=== PATIENT | male | born 1945 | race Caucasian/White ===

== ENCOUNTER 2025-01-07 16:18 | Emergency (ER) | payer MEDICARE, OTHER, SELFPAY ==
[2025-01-07] VITALS (10 sets, daily range): BP systolic 122–179; BP diastolic 73–89; PULSE 75–80; RESP 12–21; TEMP 36.6; O2SAT 94–99; BMI 29.2
--- NOTE | 2025-01-07 16:28 | DI.RAD.S_ITS ---
PROCEDURE: XR CHEST 1V INDICATIONS: Chest Pain TECHNIQUE: One view of the chest was acquired. COMPARISON: [facility], CR, XR CHEST 1 VIEW, 09/18/2023, 17:47. FINDINGS: Surgical changes and devices: None. Lungs and pleura: Lungs are clear. No pleural effusions or pneumothorax. Mediastinum: Mediastinal contours appear normal. Heart size is normal. Bones and chest wall: No suspicious bony lesions. Age-appropriate bony degenerative changes are seen. Overlying soft tissues appear unremarkable. IMPRESSION: Unremarkable imaging examination for age. Dictated by: Jose Smart M.D. on 01/07/2025 at 16:27 Approved by: Jose Smart M.D. on 01/07/2025 at 16:28
--- NOTE | 2025-01-07 16:29 | EKG_ITS ---
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
--- NOTE | 2025-01-07 16:45 | ED.DIZZY ---
HPI - Dizziness <Gordo Dorantes, DO - Last Filed: 01/07/25 22:34> General Chief Complaint: Dizziness Stated Complaint: chest problems? Time Seen by Provider: 01/07/25 16:23 Source: patient Mode of arrival: Ambulatory History of Present Illness HPI Narrative: 79-year-old gentleman history of high blood pressure, diabetes, cholesterol, presents with weakness, no energy, dizziness described as lightheadedness for the past few days progressively getting worse along with a a productive cough for which patient has not been seen or evaluated up to this point for the past few days. No recent sick contacts. Patient denies fever, chills, body aches, sore throat, chest pain, abdominal pain, nausea, vomiting, diarrhea, leg pain, or leg swelling. Other than what is stated 14 point review of system is negative. Related Data Allergies Allergy/AdvReac Type Severity Reaction Status Date / Time Penicillins Allergy Intermediate Verified 01/07/25 16:22 Review of Systems <Gordo Dorantes, DO - Last Filed: 01/07/25 22:34> Review of Systems ROS Unobtainable: All systems reviewed & are unremarkable except as noted in HPI and below Patient History <Gordo Dorantes, DO - Last Filed: 01/07/25 22:34> Social History Smoking Status: Never smoker Smoking Status: Never smoker Exam <Gordo Dorantes DO - Last Filed: 01/07/25 22:34> Narrative Exam Narrative: GENERAL: [79] year old patient appears stated age. Well-developed patient, in mild distress. HEAD: Atraumatic. Normocephalic. EYES: Pupils equal round and reactive. Extraocular motions intact. No scleral icterus. No injection or drainage. ENT: Nose without bleeding, purulent drainage. Throat without erythema, tonsillar hypertrophy or exudate. Airway patent. NECK: Trachea midline. Non tender CARDIOVASCULAR: Regular rate and rhythm without murmurs, gallops, or rubs. RESPIRATORY: Clear to auscultation. Breath sounds equal bilaterally. No wheezes, rales, or rhonchi. GASTROINTESTINAL: Abdomen soft, non-tender, nondistended. EXTREMITIES: No edema or joint tenderness. BACK: Nontender without deformity or crepitance. No flank tenderness. NEURO: AOx3. GCS 15 nonfocal neuro exam SKIN: No rash or erythema of visible areas Initial Vital Signs Initial Vital Signs: Vital Signs Temperature 98 F 01/07/25 16:22 Pulse Rate 78 01/07/25 16:22 Respiratory Rate 16 01/07/25 16:22 Pulse Oximetry 96 01/07/25 16:22 Oxygen Delivery Method Room Air 01/07/25 16:22 <Fawad Mendoza, DO - Last Filed: 01/07/25 19:38> Initial Vital Signs Initial Vital Signs: Vital Signs Temperature 98 F 01/07/25 16:22 Pulse Rate 78 01/07/25 16:22 Respiratory Rate 16 01/07/25 16:22 Pulse Oximetry 96 01/07/25 16:22 Oxygen Delivery Method Room Air 01/07/25 16:22 Course <Gordo Dorantes, DO - Last Filed: 01/07/25 22:34> Orders Ordered: ED Orders 01/07/25 16:28 XR chest 1V Stat EKG-12 Lead Stat 01/07/25 16:48 CT angio head and neck Stat CT head/brain wo con Stat 01/07/25 16:55 Blood Culture Stat Complete Blood Count AUTO DIFF Stat Comprehensive Metabolic Panel Stat Covid-19 + FLU A/B + RSV - PCR Stat Lactate (Lactic Acid) Stat Lipase Stat Lipase Stat Magnesium Stat NT-proBNP (BNP-Adult 18+) Stat PTT Partial Thromboplastin Ish Stat Procalcitonin Stat Prothrombin Time INR Stat Troponin & CK Cardiac Panel Stat 01/07/25 17:04 EKG-12 Lead Stat RT Consult Eval and Treat NOW 01/07/25 18:37 Urine Microscopic Stat 01/07/25 19:00 Trop I [Troponin I] Stat EKG-12 Lead Stat Discontinued Medications Aspirin (Aspirin 81 Mg Chew Tab) 324 mg PO NOW ONE Stop: 01/07/25 16:29 Last Admin: 01/07/25 17:30 Dose: Not Given Documented By: VINICIUS Sodium Chloride (Normal Saline 0.9%) 1,000 mls @ 1,000 mls/hr IV BOLUS ONE Stop: 01/07/25 18:03 Last Infusion: 01/07/25 18:54 Dose: Infused Documented By: Admin: 01/07/25 17:15 Dose: 1,000 mls/hr Documented By: VINICIUS Ondansetron HCl (Ondansetron 4 Mg/2 Ml Inj) 4 mg IV NOW PRN PRN Reason: Nausea And Vomiting Ondansetron HCl (Ondansetron 4 Mg Odt) 4 mg PO NOW PRN PRN Reason: Nausea And Vomiting Vital Signs Vital signs: Vital Signs - 8 hr 01/07/25 16:22 01/07/25 16:37 01/07/25 16:37 Temperature 98 F Pulse Rate 78 Respiratory Rate 16 Blood Pressure 122/73 Pulse Oximetry 96 99 Oxygen Delivery Method Room Air 01/07/25 17:00 01/07/25 17:00 01/07/25 17:30 Temperature Pulse Rate 76 75 Respiratory Rate 16 21 Blood Pressure 133/78 Pulse Oximetry 96 94 Oxygen Delivery Method 01/07/25 17:32 01/07/25 17:32 01/07/25 18:00 Temperature Pulse Rate 75 77 Respiratory Rate 13 17 Blood Pressure 124/73 Pulse Oximetry 94 94 Oxygen Delivery Method 01/07/25 18:30 01/07/25 19:00 01/07/25 19:01 Temperature Pulse Rate 80 77 78 Respiratory Rate 18 13 12 Blood Pressure Pulse Oximetry 95 94 94 Oxygen Delivery Method 01/07/25 19:01 01/07/25 19:30 01/07/25 19:30 Temperature Pulse Rate 79 Respiratory Rate 13 Blood Pressure 150/81 H 179/89 H Pulse Oximetry 95 Oxygen Delivery Method <Fawad Mendoza, DO - Last Filed: 01/07/25 19:38> Orders Ordered: ED Orders 01/07/25 16:28 XR chest 1V Stat EKG-12 Lead Stat 01/07/25 16:48 CT angio head and neck Stat CT head/brain wo con Stat 01/07/25 16:55 Blood Culture Stat Complete Blood Count AUTO DIFF Stat Comprehensive Metabolic Panel Stat Covid-19 + FLU A/B + RSV - PCR Stat Lactate (Lactic Acid) Stat Lipase Stat Lipase Stat Magnesium Stat NT-proBNP (BNP-Adult 18+) Stat PTT Partial Thromboplastin Ish Stat Procalcitonin Stat Prothrombin Time INR Stat Troponin & CK Cardiac Panel Stat 01/07/25 17:04 EKG-12 Lead Stat RT Consult Eval and Treat NOW 01/07/25 18:37 Urine Microscopic Stat 01/07/25 19:00 Trop I [Troponin I] Stat EKG-12 Lead Stat Discontinued Medications Aspirin (Aspirin 81 Mg Chew Tab) 324 mg PO NOW ONE Stop: 01/07/25 16:29 Last Admin: 01/07/25 17:30 Dose: Not Given Documented By: VINICIUS Sodium Chloride (Normal Saline 0.9%) 1,000 mls @ 1,000 mls/hr IV BOLUS ONE Stop: 01/07/25 18:03 Last Infusion: 01/07/25 18:54 Dose: Infused Documented By: Admin: 01/07/25 17:15 Dose: 1,000 mls/hr Documented By: VINICIUS Ondansetron HCl (Ondansetron 4 Mg/2 Ml Inj) 4 mg IV NOW PRN PRN Reason: Nausea And Vomiting Ondansetron HCl (Ondansetron 4 Mg Odt) 4 mg PO NOW PRN PRN Reason: Nausea And Vomiting Vital Signs Vital signs: Vital Signs - 8 hr 01/07/25 16:22 01/07/25 16:37 01/07/25 16:37 Temperature 98 F Pulse Rate 78 Respiratory Rate 16 Blood Pressure 122/73 Pulse Oximetry 96 99 Oxygen Delivery Method Room Air 01/07/25 17:00 01/07/25 17:00 01/07/25 17:30 Temperature Pulse Rate 76 75 Respiratory Rate 16 21 Blood Pressure 133/78 Pulse Oximetry 96 94 Oxygen Delivery Method 01/07/25 17:32 01/07/25 17:32 01/07/25 18:00 Temperature Pulse Rate 75 77 Respiratory Rate 13 17 Blood Pressure 124/73 Pulse Oximetry 94 94 Oxygen Delivery Method 01/07/25 18:30 01/07/25 19:00 01/07/25 19:01 Temperature Pulse Rate 80 77 78 Respiratory Rate 18 13 12 Blood Pressure Pulse Oximetry 95 94 94 Oxygen Delivery Method 01/07/25 19:01 01/07/25 19:30 01/07/25 19:30 Temperature Pulse Rate 79 Respiratory Rate 13 Blood Pressure 150/81 H 179/89 H Pulse Oximetry 95 Oxygen Delivery Method MDM - Dizziness <Gordo Dorantes DO - Last Filed: 01/07/25 22:34> Lab Data 01/07/25 16:55 01/07/25 16:55 Labs: Lab Results 01/07/25 01/07/25 01/07/25 Range/Units 16:55 16:55 18:37 WBC 5.4 (4.5-11.0) X10^3/uL RBC 4.49 L (4.5-5.9) X10^6/uL Hgb 14.4 (13.5-17.5) g/dL Hct 40.7 L (41-53) % MCV 90.7 (80-100) fL MCH 32.2 (26-34) PG MCHC 35.4 (30-36) % RDW 14.1 (11.6-14.8) % Plt Count 102 L (150-400) X10^3/uL Neut % (Auto) 66.7 (50-75) % Lymph % (Auto) 13.7 L (25-40) % [place] % (Auto) 16.4 H (3-14) % Eos % (Auto) 2.5 (2-4) % Baso % (Auto) 0.7 (0-2) % Neut # (Auto) 3600 (5401-1717) /uL Lymph # (Auto) 700 L (4229-3310) /uL [place] # (Auto) 900 (0-900) /uL Eos # (Auto) 100 (0-450) /uL Baso # (Auto) 0 (0-100) /uL PT 12.3 (9.4-12.5) SECONDS INR 1.1 (0.9-1.3) APTT 29 (25.1-36.5) SECONDS Sodium 137 (137-145) mmol/L Potassium 4.1 (3.4-5.1) mmol/L Chloride 102 (98-107) mmol/L Carbon Dioxide 24 (22-32) mmol/L BUN 18 (9-20) mg/dL Creatinine 1.15 (0.66-1.25) mg/dL Estimated GFR > 60 (>60) mL/min BUN/Creatinine Ratio 15.7 (6-22) Glucose 96 (70-99) mg/dL Lactate 1.4 (0.7-2.1) mmol/L Calcium 8.9 (8.4-10.2) mg/dL Magnesium 2.0 (1.6-2.3) mg/dL Total Bilirubin 1.3 (0.2-1.3) mg/dL AST 26 (17-59) IU/L ALT 18 (<50) IU/L Alkaline Phosphatase 61 (38-126) U/L Total Creatine Kinase 103 (55-170) U/L Troponin I < 0.012 (0.01-0.034) ng/mL NT-Pro-B Natriuret Pep 1130 H (<450) pg/mL Total Protein 7.6 (6.3-8.2) g/dL Albumin 4.6 (3.5-5.0) g/dL Globulin 3.0 (1.7-4.1) g/dL Albumin/Globulin Ratio 1.5 (1.0-2.8) Lipase 64 63 (23-300) U/L Procalcitonin 0.128 (<0.5) ng/mL Urine RBC None seen (0-5/HPF) Urine WBC 0-1/hpf (0-5/HPF) Ur Squamous Epith Cells None seen (0-5/HPF) Urine Bacteria None seen (None) Vol Urine Centrifuged 10ml (spun) SARS-CoV-2 (PCR) Positive H (Negative) Influenza A (RT-PCR) Flu a negative (NEGATIVE) Influenza B (RT-PCR) Flu b negative (NEGATIVE) RSV (PCR) Negative (Negative) 01/07/25 Range/Units 19:00 WBC (4.5-11.0) X10^3/uL RBC (4.5-5.9) X10^6/uL Hgb (13.5-17.5) g/dL Hct (41-53) % MCV (80-100) fL MCH (26-34) PG MCHC (30-36) % RDW (11.6-14.8) % Plt Count (150-400) X10^3/uL Neut % (Auto) (50-75) % Lymph % (Auto) (25-40) % [place] % (Auto) (3-14) % Eos % (Auto) (2-4) % Baso % (Auto) (0-2) % Neut # (Auto) (4984-5269) /uL Lymph # (Auto) (1076-1100) /uL [place] # (Auto) (0-900) /uL Eos # (Auto) (0-450) /uL Baso # (Auto) (0-100) /uL PT (9.4-12.5) SECONDS INR (0.9-1.3) APTT (25.1-36.5) SECONDS Sodium (137-145) mmol/L Potassium (3.4-5.1) mmol/L Chloride (98-107) mmol/L Carbon Dioxide (22-32) mmol/L BUN (9-20) mg/dL Creatinine (0.66-1.25) mg/dL Estimated GFR (>60) mL/min BUN/Creatinine Ratio (6-22) Glucose (70-99) mg/dL Lactate (0.7-2.1) mmol/L Calcium (8.4-10.2) mg/dL Magnesium (1.6-2.3) mg/dL Total Bilirubin (0.2-1.3) mg/dL AST (17-59) IU/L ALT (<50) IU/L Alkaline Phosphatase (38-126) U/L Total Creatine Kinase (55-170) U/L Troponin I < 0.012 (0.01-0.034) ng/mL NT-Pro-B Natriuret Pep (<450) pg/mL Total Protein (6.3-8.2) g/dL Albumin (3.5-5.0) g/dL Globulin (1.7-4.1) g/dL Albumin/Globulin Ratio (1.0-2.8) Lipase (23-300) U/L Procalcitonin (<0.5) ng/mL Urine RBC (0-5/HPF) Urine WBC (0-5/HPF) Ur Squamous Epith Cells (0-5/HPF) Urine Bacteria (None) Vol Urine Centrifuged SARS-CoV-2 (PCR) (Negative) Influenza A (RT-PCR) (NEGATIVE) Influenza B (RT-PCR) (NEGATIVE) RSV (PCR) (Negative) Urine Dip Bedside Urine Glucose 1000 mg/dl Bedside Urine Bilirubin - Negative Bedside Urine Ketone + 15 Urine Specific [place] 1.010 Bedside Urine Occult Blood - Negative Bedside Urine pH 6.0 Bedside Urine Protein +/- 15 Bedside Urine Urobilinogen - Negative Bedside Urine Nitrite - Negative Bedside Urine Leukocytes - Negative Esterase Imaging Data Chest x-ray: Radiologist's Impression: [address] [address] XRay Report Signed Patient: Janes oMrel MR#: [id number] : 1945 Acct:[id number] Age/Sex: 79 / M Date of Service: 01/07/25 Loc: ED Accession Number: [id number] Procedure: XR chest 1V Ordering Provider: Gordo Dorantes D.O. PROCEDURE: XR CHEST 1V INDICATIONS: Chest Pain TECHNIQUE: One view of the chest was acquired. COMPARISON: [facility], CR, XR CHEST 1 VIEW, 09/18/2023, 17:47. FINDINGS: Surgical changes and devices: None. Lungs and pleura: Lungs are clear. No pleural effusions or pneumothorax. Mediastinum: Mediastinal contours appear normal. Heart size is normal. Bones and chest wall: No suspicious bony lesions. Age-appropriate bony degenerative changes are seen. Overlying soft tissues appear unremarkable. IMPRESSION: Unremarkable imaging examination for age. ECG Data Interpretation: NSR HR 77 NE 164 QRS [address]-t wave change No previous EKG to compare <Fawad Reji, DO - Last Filed: 01/07/25 19:38> Lab Data Labs: Lab Results 01/07/25 01/07/25 01/07/25 Range/Units 16:55 16:55 18:37 WBC 5.4 (4.5-11.0) X10^3/uL RBC 4.49 L (4.5-5.9) X10^6/uL Hgb 14.4 (13.5-17.5) g/dL Hct 40.7 L (41-53) % MCV 90.7 (80-100) fL MCH 32.2 (26-34) PG MCHC 35.4 (30-36) % RDW 14.1 (11.6-14.8) % Plt Count 102 L (150-400) X10^3/uL Neut % (Auto) 66.7 (50-75) % Lymph % (Auto) 13.7 L (25-40) % [place] % (Auto) 16.4 H (3-14) % Eos % (Auto) 2.5 (2-4) % Baso % (Auto) 0.7 (0-2) % Neut # (Auto) 3600 (0753-3681) /uL Lymph # (Auto) 700 L (9193-9966) /uL [place] # (Auto) 900 (0-900) /uL Eos # (Auto) 100 (0-450) /uL Baso # (Auto) 0 (0-100) /uL PT 12.3 (9.4-12.5) SECONDS INR 1.1 (0.9-1.3) APTT 29 (25.1-36.5) SECONDS Sodium 137 (137-145) mmol/L Potassium 4.1 (3.4-5.1) mmol/L Chloride 102 (98-107) mmol/L Carbon Dioxide 24 (22-32) mmol/L BUN 18 (9-20) mg/dL Creatinine 1.15 (0.66-1.25) mg/dL Estimated GFR > 60 (>60) mL/min BUN/Creatinine Ratio 15.7 (6-22) Glucose 96 (70-99) mg/dL Lactate 1.4 (0.7-2.1) mmol/L Calcium 8.9 (8.4-10.2) mg/dL Magnesium 2.0 (1.6-2.3) mg/dL Total Bilirubin 1.3 (0.2-1.3) mg/dL AST 26 (17-59) IU/L ALT 18 (<50) IU/L Alkaline Phosphatase 61 (38-126) U/L Total Creatine Kinase 103 (55-170) U/L Troponin I < 0.012 (0.01-0.034) ng/mL NT-Pro-B Natriuret Pep 1130 H (<450) pg/mL Total Protein 7.6 (6.3-8.2) g/dL Albumin 4.6 (3.5-5.0) g/dL Globulin 3.0 (1.7-4.1) g/dL Albumin/Globulin Ratio 1.5 (1.0-2.8) Lipase 64 63 (23-300) U/L Procalcitonin 0.128 (<0.5) ng/mL Urine RBC None seen (0-5/HPF) Urine WBC 0-1/hpf (0-5/HPF) Ur Squamous Epith Cells None seen (0-5/HPF) Urine Bacteria None seen (None) Vol Urine Centrifuged 10ml (spun) SARS-CoV-2 (PCR) Positive H (Negative) Influenza A (RT-PCR) Flu a negative (NEGATIVE) Influenza B (RT-PCR) Flu b negative (NEGATIVE) RSV (PCR) Negative (Negative) 01/07/25 Range/Units 19:00 WBC (4.5-11.0) X10^3/uL RBC (4.5-5.9) X10^6/uL Hgb (13.5-17.5) g/dL Hct (41-53) % MCV (80-100) fL MCH (26-34) PG MCHC (30-36) % RDW (11.6-14.8) % Plt Count (150-400) X10^3/uL Neut % (Auto) (50-75) % Lymph % (Auto) (25-40) % [place] % (Auto) (3-14) % Eos % (Auto) (2-4) % Baso % (Auto) (0-2) % Neut # (Auto) (9434-2898) /uL Lymph # (Auto) (1395-4385) /uL [place] # (Auto) (0-900) /uL Eos # (Auto) (0-450) /uL Baso # (Auto) (0-100) /uL PT (9.4-12.5) SECONDS INR (0.9-1.3) APTT (25.1-36.5) SECONDS Sodium (137-145) mmol/L Potassium (3.4-5.1) mmol/L Chloride (98-107) mmol/L Carbon Dioxide (22-32) mmol/L BUN (9-20) mg/dL Creatinine (0.66-1.25) mg/dL Estimated GFR (>60) mL/min BUN/Creatinine Ratio (6-22) Glucose (70-99) mg/dL Lactate (0.7-2.1) mmol/L Calcium (8.4-10.2) mg/dL Magnesium (1.6-2.3) mg/dL Total Bilirubin (0.2-1.3) mg/dL AST (17-59) IU/L ALT (<50) IU/L Alkaline Phosphatase (38-126) U/L Total Creatine Kinase (55-170) U/L Troponin I < 0.012 (0.01-0.034) ng/mL NT-Pro-B Natriuret Pep (<450) pg/mL Total Protein (6.3-8.2) g/dL Albumin (3.5-5.0) g/dL Globulin (1.7-4.1) g/dL Albumin/Globulin Ratio (1.0-2.8) Lipase (23-300) U/L Procalcitonin (<0.5) ng/mL Urine RBC (0-5/HPF) Urine WBC (0-5/HPF) Ur Squamous Epith Cells (0-5/HPF) Urine Bacteria (None) Vol Urine Centrifuged SARS-CoV-2 (PCR) (Negative) Influenza A (RT-PCR) (NEGATIVE) Influenza B (RT-PCR) (NEGATIVE) RSV (PCR) (Negative) Urine Dip Bedside Urine Glucose 1000 mg/dl Bedside Urine Bilirubin - Negative Bedside Urine Ketone + 15 Urine Specific [place] 1.010 Bedside Urine Occult Blood - Negative Bedside Urine pH 6.0 Bedside Urine Protein +/- 15 Bedside Urine Urobilinogen - Negative Bedside Urine Nitrite - Negative Bedside Urine Leukocytes - Negative Esterase ECG Data Interpretation: NSR HR 77 NE 164 QRS [address]-t wave change No previous EKG to compare Repeat EKG interpreted by ED physician sinus at 78 beats per minute QTC 453, QRS NE interval within normal limits, no STEMI MDM Narrative Medical decision making narrative: Patient was signed out to me by Dr. Dorantes, patient initially presented for lightheaded dizziness, workup so far has been positive for COVID, patient's lab work without any leukocytosis, troponin negative x2, patient did have slightly elevated BNP at 1830 but not having any shortness of breath no pleural effusion seen on chest x-ray, EKG nonischemic in nature, CT head CT angio head and neck without any acute findings symptoms more likely secondary to COVID-19. Patient will be discharged home with strict return precautions and verbalized to follow up with the primary care in outpatient setting, he verbalized understanding of this and agrees to being discharged home with outpatient follow up Discharge Plan Departure Patient Disposition: Home Clinical Impression: COVID-19 Activity Restrictions/Additional Instructions: Please follow up with the primary care doctor Please read the discharge instructions sheet carefully and bring all papers to all doctor follow-up visits, as it may contain information that your doctor may want to see. Disease processes change and evolve, if your symptoms worsen or if you develop any new symptoms that are concerning to you please return for evaluation. Your evaluation today does not show any evidence of any life-threatening/serious illnesses requiring admission to the hospital or surgery. Please follow-up with your doctor for re-evaluation in approximately 1 day. Seek immediate medical attention for any worrisome symptoms. *If you do not have a primary care provider please contact the [facility] Resource line at [phone]. They will ask some questions about your medical history and help get you set up with a doctor in the community. Stand Alone Forms: Patient Portal/API
--- NOTE | 2025-01-07 16:48 | DI.CT.S_ITS ---
PROCEDURE: CT ANGIO HEAD AND NECK INDICATIONS: weak dizziness TECHNIQUE: After the administration of intravenous contrast, 1 mm thick sections acquired from the aortic arch through the [place]. 3-dimensional gykzfvx-tqvvcpich-sffufiyejx (MIP) and/or volume rendering reformats were acquired of the central intracranial vasculature and neck separately. For radiation dose reduction, the following was used: automated exposure control, adjustment of mA and/or kV according to patient size. COMPARISON: [facility], CT, CT HEAD/BRAIN WO CON, 01/07/2025, 17:39. [facility], CT, CT HEAD WITHOUT CONTRAST, 09/25/2023, 18:02. [facility], US, US CAROTID BILATERAL, 09/26/2023, 16:31. (Additional prior imaging is not available for review from the archive at the time of this dictation.) FINDINGS: Image quality: Limited by bolus timing, with venous contamination. There is artifact associated with the metallic hardware. Artifact from the metallic hardware is reduced by metal reconstruction algorithm. Cerebral CT Angiogram: Internal carotid arteries: No acute findings. Intracranial ICA are patent with no significant stenosis. No occlusion. No aneurysm. Anterior cerebral arteries: Unremarkable. No significant stenosis. No occlusion. No aneurysm. Middle cerebral arteries: Unremarkable. No significant stenosis. No occlusion. No aneurysm. Posterior cerebral arteries: Unremarkable. No significant stenosis. No occlusion. No aneurysm. Basilar artery: Unremarkable. No significant stenosis. No occlusion. No aneurysm. Vertebral arteries: Unremarkable as visualized. Dural venous sinuses: Unremarkable given phase of enhancement. Other: Arterial phase appearance of the brain parenchyma is unremarkable. Neck CT Angiogram: Internal carotid arteries: Generalized atherosclerotic irregularity and calcification can be seen involving the carotid bifurcation regions. No hemodynamically significant stenosis is seen. The more distal internal carotid arteries demonstrate normal caliber. The internal carotid arteries are moderately tortuous. Common carotid arteries: Unremarkable. No significant stenosis. No dissection or occlusion. External carotid arteries: Unremarkable. No occlusion. Vertebral arteries: The origins of the vertebral arteries both appear widely patent. The more superior extracranial portions of both vertebral arteries also demonstrate normal courses and calibers. The left vertebral artery is dominant to the right. Aortic Arch and Mediastinum: Partially visualized aortic arch unremarkable without evidence of aneurysm. Origins of the great vessels unremarkable. Other: Arterial phase soft tissues of the neck and chest are unremarkable. Moderate cervical spine degenerative change can be seen inferiorly. IMPRESSION: No significant intracranial arterial abnormality is seen. No significant abnormality is seen within the arteries of the neck. Any quantitative measurements of stenosis were performed using NASCET criteria. Dictated by: Jose Samrt M.D. on 01/07/2025 at 17:18 Approved by: Jose Smart M.D. on 01/07/2025 at 17:21
--- NOTE | 2025-01-07 16:48 | DI.CT.S_ITS ---
PROCEDURE: CT HEAD/BRAIN WO CON INDICATIONS: weak dizziness TECHNIQUE: Noncontrast 4.5 mm thick angled axial sections acquired from the foramen magnum to the vertex, with coronal and sagittal reformats. For radiation dose reduction, the following was used: automated exposure control, adjustment of mA and/or kV according to patient size. COMPARISON: [facility], CT, CT ANGIO HEAD AND NECK, 01/07/2025, 17:39. [facility], CT, CT HEAD WITHOUT CONTRAST, 09/25/2023, 18:02. (Additional prior imaging is not available for review from the archive at the time of this dictation.) FINDINGS: Image quality: Diagnostic. CSF spaces: Basal cisterns are patent. No extra-axial fluid collections. The ventricles are symmetric in size and shape. Brain: No intracranial bleeds or mass effect. There is cerebral volume loss, with resultant ventricular and sulcal prominence. There are periventricular and deep white matter chronic small vessel ischemic changes. There is intracranial internal carotid artery atherosclerosis. Skull and face: Calvarium and visualized facial bones appear intact, without suspicious lesions. Sinuses: Visualized sinuses and mastoids are clear. IMPRESSION: Unremarkable head CT for age, similar to prior. Dictated by: Jose Smart M.D. on 01/07/2025 at 17:17 Approved by: Jose Smart M.D. on 01/07/2025 at 17:18
[2025-01-07 17:01] LABS: Add Manual Diff / Slide Review NO; Hematocrit 40.7 % (41-53); Hemoglobin 14.4 g/dL (13.5-17.5); Lymphocytes Absolute Auto 700 /uL (1100-4500); Mean Corpuscular HGB Conc 35.4 % (30-36); Mean Corpuscular Hemoglobin 32.2 PG (26-34); Mean Corpuscular Volume 90.7 fL (80-100); Platelet Count 102 X10^3/uL (150-400)
[2025-01-07 17:08] LABS: INR 1.1 (0.9-1.3); Prothrombin Time 12.3 SECONDS (9.4-12.5)
[2025-01-07 17:10] LABS: PTT Partial Thromboplastin Tim 29 SECONDS (25.1-36.5)
[2025-01-07 17:12] LABS: Alanine Aminotransferase 18 IU/L (<50); Albumin 4.6 g/dL (3.5-5.0); Albumin Globulin Ratio 1.5 (1.0-2.8); Alkaline Phosphatase 61 U/L (38-126); Blood Urea Nitrogen 18 mg/dL (9-20); Calcium 8.9 mg/dL (8.4-10.2); Carbon Dioxide 24 mmol/L (22-32); Chloride 102 mmol/L (98-107); Creatine Kinase 103 U/L (55-170); Estimated Glomerular Filt Rate > 60 mL/min (>60); Globulin 3.0 g/dL (1.7-4.1); Glucose 96 mg/dL (70-99); HEMOLYSIS < 15 (0-50); Lipase 64 U/L (23-300); Magnesium 2.0 mg/dL (1.6-2.3); Potassium 4.1 mmol/L (3.4-5.1); Sodium 137 mmol/L (137-145); Total Protein 7.6 g/dL (6.3-8.2)
[2025-01-07] MEDS: SODIUM CHLORIDE 0.9% 1,000 ML 1000 ML IV (17:15)
[2025-01-07 17:18] LABS: Lactate (Lactic Acid) 1.4 mmol/L (0.7-2.1)
[2025-01-07 17:24] LABS: NT-proBNP (BNP-Adult 18+) 1130 pg/mL (<450); Troponin I < 0.012 ng/mL (0.01-0.034)
[2025-01-07 17:25] LABS: Lipase 63 U/L (23-300)
--- NOTE | 2025-01-07 17:29 | EKG_ITS ---
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
[2025-01-07 17:43] LABS: Influenza A - CEPHEID Flu A NEGATIVE (NEGATIVE); Influenza B - CEPHEID Flu B NEGATIVE (NEGATIVE)
[2025-01-07 17:44] LABS: Procalcitonin 0.128 ng/mL (<0.5)
[2025-01-07 17:45] LABS: COVID-19 CEPHEID 4-PLEX PCR POSITIVE (Negative)
--- NOTE | 2025-01-07 19:00 | EKG_ITS ---
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
[2025-01-07 19:26] LABS: Troponin I < 0.012 ng/mL (0.01-0.034)
== END 2025-01-07 19:47 | disposition home or self-care (01) ==
PROVIDERS: Family Medicine; Emergency Provider Student in an Organized Health Care Education/Training Program
DX: U07.1 COVID-19 (principal); R07.9 Chest pain, unspecified; R42 Dizziness and giddiness
CPT/HCPCS: 36415; 70450; 70496; 70498; 71045; 80053; 81003; 81015; 82550; 83605; 83690; 83735; 83880; 84145; 84484; 85025; 85610; 85730; 87040; 87637; 93005; 96360; 96361; 99284; Q9967